=== PATIENT | male | born 1945 | race Caucasian/White ===

== ENCOUNTER 2023-04-19 18:18 | Emergency (ER) | payer OTHER, MEDICARE ==
[~2023-04-19] VITALS: Ht 182.9 cm; Wt 71.6 kg
[2023-04-19 18:31] VITALS: TEMP 100.3
--- NOTE | 2023-04-19 19:01 | NUR ---
ATTEMPTED TO COMPLETE MEDICATION REC, PT DOES NOT KNOW MEDICATIONS BUT [facility].
[2023-04-19 20:53] LABS: BASOPHILS % (AUTO) 0.2 % (0-1); EOSINOPHILS % (AUTO) 0.1 % (0-6); HEMATOCRIT 42.8 % (42.0-52.0); HEMOGLOBIN 14.5 g/dl (14.0-17.9); LYMPHOCYTES # (AUTO) 0.7 X10'3 (1.1-4.8); LYMPHOCYTES % (AUTO) 10.1 % (21-51); MEAN CORPUSCULAR HEMOGLOBIN 31.1 PG (27.0-31.0); MEAN CORPUSCULAR HGB CONC 33.9 g/dL (33.0-36.5); MEAN PLATELET VOLUME 8.6 FL (7.4-10.4); MONOCYTES # (AUTO) 0.7 X10'3 (0-0.9); NEUTROPHILS # (AUTO) 5.3 X10'3 (1.8-7.7); NEUTROPHILS % (AUTO) 79.6 % (42-75); PLATELET COUNT 207 X10'3 (140-440); RED BLOOD COUNT 4.65 X10'6 (4.70-6.10); RED CELL DISTRIBUTION WIDTH 14.2 % (11.5-14.5); WHITE BLOOD COUNT 6.6 X10'3 (4.5-11.0)
[2023-04-19 21:01] LABS: ALANINE AMINOTRANSFERASE 32 U/L (12-78); ALBUMIN 3.6 G/DL (3.4-5.0); ALBUMIN/GLOBULIN RATIO 1.1 (1.1-1.5); ALKALINE PHOSPHATASE 70 IU/L (46-116); ANION GAP 12 (8-16); ASPARTATE AMINO TRANSFERASE 27 U/L (10-37); BILIRUBIN,TOTAL 0.4 MG/DL (0.1-1.0); BLOOD UREA NITROGEN 20 MG/DL (7-18); BUN/CREATININE RATIO 21.3 (10.0-20.0); CALCIUM 8.6 MG/DL (8.5-10.1); CHLORIDE 107 MMOL/L (99-107); CREATININE 0.94 MG/DL (0.60-1.10); GLUCOSE 116 MG/DL (70-104); LIPASE < 50 U/L (73-393); POTASSIUM 3.7 MMOL/L (3.5-5.1); SODIUM 141 MMOL/L (135-145); TOTAL CARBON DIOXIDE 21.8 MMOL/L (24-32); TOTAL PROTEIN 6.9 G/DL (6.4-8.2); eCRCL 66 ML/MIN; eGFR 78 ML/MIN
[2023-04-19 21:18] LABS: BILIRUBIN,URINE NEGATIVE (Neg); CLARITY,URINE CLEAR (Clear); COLOR,URINE YELLOW (Yellow); GLUCOSE, URINE NEGATIVE (Neg); KETONES,URINE TRACE mg/dl (Neg); LEUKOCYTE ESTERASE ,URINE NEGATIVE (Neg); NITRITES, URINE NEGATIVE (Neg); OCCULT BLOOD,URINE TRACE-INTACT (Neg); PH,URINE 5.5 (4.8-8.0); PROTEIN,URINE 30 mg/dl (Neg); UROBILINOGEN,URINE 0.2 E.U/dL (0.2-1.0)
[2023-04-19 21:24] LABS: UA COLLECTION TYPE URINAL
[2023-04-19 21:30] LABS: WBC,URINE 0-4 /HPF (0-4)
[2023-04-19 21:31] LABS: BACTERIA,URINE FEW /HPF (Neg)
[2023-04-19 21:32] LABS: SQUAMOUS EPITHELIAL CELL,UR FEW /LPF (FEW)
[2023-04-19 21:33] LABS: MUCUS STRANDS NONE SEEN /LPF (Neg)
[2023-04-19] MEDS ORDERED: normal saline 1000ML IV soln IVB ONE (22:25)
--- NOTE | 2023-04-19 22:38 | NUR ---
[place] FOR DR FITZGERALD RECTAL EXAM.
[2023-04-19] MEDS ORDERED: PANT-47 PO (23:21)
[2023-04-19 23:41] VITALS: BP 128/86; PULSE 79; RESP 18; O2SAT 98
[2023-04-20 06:05] LABS: OCCULT BLOOD STOOL POSITIVE (Neg)
== END 2023-04-19 23:43 | disposition home or self-care (01) ==
LOC: ER 18:19
DX: K92.1 Melena (principal); R11.2 Nausea with vomiting, unspecified; R19.7 Diarrhea, unspecified; K92.2 Gastrointestinal hemorrhage, unspecified; N32.9 Bladder disorder, unspecified; E78.00 Pure hypercholesterolemia, unspecified; I10 Essential (primary) hypertension; Z79.899 Other long term (current) drug therapy
CPT/HCPCS: 36415; 80053; 81001; 82272; 83690; 85025; 99285; J7030